=== PATIENT | male | born 1975 | race African-American/Black ===

== ENCOUNTER 2018-03-23 19:37 | Emergency (ER) | payer OTHER ==
[2018-03-23 19:44] VITALS: BP 139/80; PULSE 74; TEMP 98.2; BMI 30.7
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
[2018-03-23] MEDS ORDERED: KETOROLAC TROMETHAMINE 60 MG/2 ML VIAL IM ONE (21:05)
[2018-03-23] MEDS ORDERED: KETOROLAC TROMETHAMINE 60 MG/2 ML VIAL ONE (21:09)
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
== END 2018-03-23 21:40 | disposition home or self-care (01) ==
LOC: JERFT 19:37
PROC: 3E0233Z Introduction of Anti-inflammatory into Muscle, Percutaneous Approach (ICD-10-PCS; principal; 2018-03-23)
DX: S13.4XXA Sprain of ligaments of cervical spine, initial encounter (principal); S39.012A Strain of muscle, fascia and tendon of lower back, initial encounter; V49.49XA Driver injured in collision with other motor vehicles in traffic accident, initial encounter; Y92.488 Other paved roadways as the place of occurrence of the external cause; Y93.89 Activity, other specified; Y99.8 Other external cause status
CPT/HCPCS: 72050-TC-FY; 72100-TC-FY; 99281-25

== ENCOUNTER 2024-09-15 05:08 | Emergency (ER) | payer OTHER ==
[2024-09-15 05:13] VITALS: BP 138/86; PULSE 76; RESP 18; TEMP 98.2; BMI 32.0
[2024-09-15] MEDS ORDERED: LIDOCAINE 4% PATCH TP ONE (05:34)
[2024-09-15] MEDS ORDERED: KETOROLAC TROMETHAMINE 30 MG/1 ML VIAL ONE (05:35)
[2024-09-15] MEDS: LIDOCAINE 5% TOPICAL PATCH TP ONE (05:38)
[2024-09-15] MEDS: KETOROLAC TROMETHAMINE 30 MG/1 ML VIAL IM ONE (05:38)
[2024-09-15] MEDS ORDERED: LIDOCAINE PATCH REMOVAL MC ONE (18:00)
== END 2024-09-15 06:43 | disposition home or self-care (01) ==
LOC: JER 05:08
PROC: 3E0233Z Introduction of Anti-inflammatory into Muscle, Percutaneous Approach (ICD-10-PCS; principal; 2024-09-15)
DX: M79.10 Myalgia, unspecified site (principal); M25.511 Pain in right shoulder; M79.602 Pain in left arm; V87.7XXA Person injured in collision between other specified motor vehicles (traffic), initial encounter
CPT/HCPCS: 73030-TC-RT-FY; 73090-TC-LT-FY; 99284-25